=== PATIENT | male | born 1940 | race African-American/Black ===

== ENCOUNTER 2017-07-09 18:17 | Inpatient (IN) | payer MEDICARE, MEDICAID ==
[~2017-07-09] VITALS: Ht 182.9 cm; Wt 64.4 kg
[~2017-07-09 18:17] MED LIST: ALBU2.5V7 IH; HEPA0.5D3 SQ; OMEP20TA5 PO
[2017-07-09] MEDS ORDERED: NICO2GUM38 BC (18:44)
[2017-07-09] MEDS ORDERED: OLAN5TAB3 PO (18:44)
[2017-07-09] MEDS ORDERED: FOLI1TAB16 PO (18:44)
[2017-07-09] MEDS ORDERED: QUET25TA PO (18:44)
[2017-07-09] MEDS ORDERED: MULT1TAB73 PO (18:44)
[2017-07-09] MEDS ORDERED: NICO-625 TD (18:44)
--- NOTE | 2017-07-09 19:17 | NUR ---
handsoff report to given to kandi rodriguez
--- NOTE | 2017-07-09 20:04 | NUR ---
Pt. admitted to GPS, under care of Dr. Miller Belongs List completed
[2017-07-09 20:30] VITALS: BP 107/58
[2017-07-09] MEDS ORDERED: MAGNESIUM HYDROXIDE 30 ML LIQUID UDC PO PRN (20:45)
[2017-07-09] MEDS ORDERED: MAG HYDROX/AL HYDROX/SIMETH 30 ML LIQUID UDC PO PRN (20:45)
[2017-07-09] MEDS ORDERED: ACETAMINOPHEN 325 MG TABLET PO PRN (20:45)
[2017-07-09] MEDS ORDERED: CLONAZEPAM 0.5 MG TABLET PO SCH (20:45)
[2017-07-09 23:27] VITALS: BP 107/58
--- NOTE | 2017-07-10 04:56 | NUR ---
GPS:ADMISSION NOTES 77 Y/O MALE WHO INITIALLY LIVED AT [facility] AND WAS SENT TO [facility] WAS ADMITTED AT [facility] AFTER MEDICALLY CLEARED FROM ER.PATIENT ARRIVED BY GURJAHAIRA ACCOMPANIED BY ER STAFF. ON A 72HR HOLD FOR GRAVELY DISABLED PER HOLD HE WAS PREOCCUPIED WITH A LIGHT PIERCING HIS EYES , INCOHERENT FAILURE TO THRIVE AND UNABLE TO STATE WHEN HE LAST ATE SLEEP OR GET CLOTHES. UPON ASSESSMENT HE WAS OBSERVED TO BE UNKEMPT MUMBLING AND TALKING TO HIMSELF. WHEN ASKED WHAT BROUGHT HIM HERE HE SAID" I WAS BROUGHT ON A GURNEY.'HE ANSWERED SOME OF THE QUESTIONS AND WAS EVASIVE AND RELUCTANT WITH OTHERS STATING'" I WILL HAVE TO GET BACK TO YOU ON THAT "HIS MOOD WAS LABILE AND INCONGRUENT. HE HAS A HISTORY OF ASTHMA , ARTHRITIS SMOKER SCHIZO AFFECTIVE AND BIPOLAR DISORDER. HE SIGNED HALF THE ADMITTING PAPERS AND REFUSED TO SIGN THE REST. HE IS UNSTEADY ON HIS FEET WITH A HISTORY OF FALLS.HE DENIED PAIN, SI/HI.WILL CONTINUE TO MONITOR.
--- NOTE | 2017-07-10 07:02 | NUR ---
SLEPT FOR 2;45.PACING UP AND DOWN BUT GOES TO HIS ROOM AFTER REDIRECTION.WILL CONTINUE TO MONITOR
[2017-07-10 07:30] VITALS: BP 118/66
[2017-07-10] MEDS: MULTIVITAMINS,THERAPEUTIC TABLET PO SCH (08:58)
[2017-07-10] MEDS: FOLIC ACID 1 MG TABLET PO SCH (08:58)
[2017-07-10] MEDS: NICOTINE 14 MG/24HR PATCH TD SCH (08:58)
[2017-07-10] MEDS ORDERED: NICOTINE 14 MG/24HR PATCH TD SCH (09:00)
[2017-07-10] MEDS ORDERED: Medication Not On Formulary EA (Multivitamins (Multivitamin) 1 EACH) PO SCH (09:00)
--- NOTE | 2017-07-10 14:41 | NUR ---
Firearms Report: Bench Inspector completed and submitted [facility] Firearms Report on 07/10/17.
[2017-07-10 15:32] VITALS: BP 106/46
--- NOTE | 2017-07-10 17:00 | NUR ---
GPS: Nursing Notes: Thought Disorder: Patient is awake and responding to his name, pacing around the unit, wearing a trash paper bag like a hat, stated "I have an acute hearing...", internally preoccupied, mumbling to self, A/Ox2, disoriented to situation and time, episodes of talking incoherently, poor grooming, unkempt appearance, unable to formulate a viable plan for self care, believes that some baltazar of lights are piercing his eyes, denies any pain or discomfort at this time, continue with treatment plan.
[2017-07-10 20:00] VITALS: BP 121/46
[2017-07-10] MEDS ORDERED: OLANZAPINE ZYDIS 5 MG TAB.RAPDIS PO SCH (21:00)
--- NOTE | 2017-07-11 06:52 | NUR ---
PATIENT SLEPT WELL FOR 8;30 THROUGHOUT THE NIGHT. CALM AND COOPERATIVE WITH STAFF. WILL CONTINUE WITH MONITORING
[2017-07-11 07:30] VITALS: BP 154/63
[2017-07-11] MEDS: MULTIVITAMINS,THERAPEUTIC TABLET PO SCH (08:38)
[2017-07-11] MEDS: FOLIC ACID 1 MG TABLET PO SCH (08:39)
[2017-07-11] MEDS: NICOTINE 14 MG/24HR PATCH TD SCH (08:39)
--- NOTE | 2017-07-11 12:10 | NUR ---
Initial Discharge Instructions: Patient is currently homeless. Per chart, he was discharged to [facility] [[address], [place] [address]; [phone]] on 03/15/16. Placed call to the facility and spoke with Zahida in Medical Records who states the patient was discharged from that facility on 06/22/17. Patient was unable to form plan for discharge disposition at this time. SW will collaborate with pt and MD regarding appropriate discharge plan for this patient. SW will form a safe and proper discharge plan.
[2017-07-11 15:17] VITALS: BP 122/64
[2017-07-11 20:00] VITALS: BP 99/64
[2017-07-11] MEDS ORDERED: OLANZAPINE ZYDIS 5 MG TAB.RAPDIS PO SCH (21:00)
--- NOTE | 2017-07-11 22:00 | NUR ---
received to care, watching tv with peers, pleasant upon approach. compliant with medications and staff direction. as of 2199, he appears to be asleep. no distress noted. will continue to monitor closely.
--- NOTE | 2017-07-12 06:40 | NUR ---
Shift end report: Slept total of 5.5 hours. No complaint presented. No significant event reported all night. Continue care as planned.
[2017-07-12 07:30] VITALS: BP 107/69
--- NOTE | 2017-07-12 07:58 | NUR ---
received pt. awake sitting on bed. looks sad but cooperative at this time.
[2017-07-12] MEDS: FOLIC ACID 1 MG TABLET PO SCH (08:55)
[2017-07-12] MEDS: MULTIVITAMINS,THERAPEUTIC TABLET PO SCH (08:55)
[2017-07-12] MEDS: NICOTINE 14 MG/24HR PATCH TD SCH (08:55)
[2017-07-12 14:35] VITALS: BP 137/65
--- NOTE | 2017-07-12 15:24 | NUR ---
up to the dining room. fall precaution maintained. kept safe, seen at intervals. needs attended.
[2017-07-12 20:00] VITALS: BP 111/60
[2017-07-12] MEDS ORDERED: OLANZAPINE ZYDIS 5 MG TAB.RAPDIS PO SCH (21:00)
--- NOTE | 2017-07-12 22:00 | NUR ---
received to care, watching tv with peers, pleasant, upon approach. observed to talking to self, at times. compliant with medications and staff direction. as of 0, he remains awake, watching tv. no distress noted. will continue to monitor closely.
[2017-07-12] MEDS: TEMAZEPAM 7.5 MG CAPSULE PO PRN (23:08)
--- NOTE | 2017-07-12 23:08 | NUR ---
remains awake, in tv room. PRN restoril given for insomnia.
--- NOTE | 2017-07-12 23:40 | NUR ---
appears to be asleep. no distress noted.
[2017-07-13 08:00] VITALS: BP 114/54
[2017-07-13] MEDS: FOLIC ACID 1 MG TABLET PO SCH (09:10)
[2017-07-13] MEDS: MULTIVITAMINS,THERAPEUTIC TABLET PO SCH (09:10)
[2017-07-13] MEDS: NICOTINE 14 MG/24HR PATCH TD SCH (09:11)
[2017-07-13 16:18] VITALS: BP 151/80
--- NOTE | 2017-07-13 17:00 | NUR ---
Gps/Bell Person- Ambulatory, isolative, showered self ind.after set up, not interactive but follows simple directions . Safety reviewed emphasized, encouraged eating in the dinning room during meals.
[2017-07-13 20:00] VITALS: BP 127/89
[2017-07-13] MEDS ORDERED: OLANZAPINE ZYDIS 5 MG TAB.RAPDIS PO SCH (21:00)
--- NOTE | 2017-07-13 22:00 | NUR ---
received to care, lying in bed, with covers over his face. remains pleasant when engaged. compliant with medications and staff direction. as of 2199, he appears to be asleep. no distress noted. will continue to monitor closely.
--- NOTE | 2017-07-14 06:00 | NUR ---
slept 6.0 hours.
[2017-07-14 07:30] VITALS: BP 149/59
[2017-07-14] MEDS: NICOTINE 14 MG/24HR PATCH TD SCH (08:53)
[2017-07-14] MEDS: FOLIC ACID 1 MG TABLET PO SCH (08:53)
[2017-07-14] MEDS: MULTIVITAMINS,THERAPEUTIC TABLET PO SCH (08:53)
[2017-07-14 14:54] VITALS: BP 106/58
[2017-07-14] MEDS: CLONAZEPAM 0.5 MG TABLET PO PRN (18:41)
[2017-07-14 19:59] VITALS: BP 102/60
[2017-07-14] MEDS: OLANZAPINE ZYDIS 5 MG TAB.RAPDIS PO SCH (20:25)
[2017-07-14] MEDS: TEMAZEPAM 7.5 MG CAPSULE PO PRN (21:00)
--- NOTE | 2017-07-15 06:22 | NUR ---
Patient slept 5.5 hours in my shift. No behavioral issues. Med compliant. VSS. Room is kept clutter free. Bed in low and locked position. All meds given as ordered with no adverse effects. All needs met. Safety and comfort measures maintained t/o shift.
[2017-07-15] MEDS: CLONAZEPAM 0.5 MG TABLET PO PRN (09:04)
[2017-07-15] MEDS: FOLIC ACID 1 MG TABLET PO SCH (09:04)
[2017-07-15] MEDS: MULTIVITAMINS,THERAPEUTIC TABLET PO SCH (09:04)
[2017-07-15] MEDS: NICOTINE 14 MG/24HR PATCH TD SCH (09:05)
[2017-07-15 10:25] VITALS: BP 132/64
--- NOTE | 2017-07-15 16:00 | NUR ---
Gps/Physician Executive- Attended group therapy, needed min.prompting to take his routine meds. Responding to internal stimuli, noted talking to self.
[2017-07-15 16:48] VITALS: BP 125/66
[2017-07-15 20:30] VITALS: BP 116/61
[2017-07-15] MEDS: OLANZAPINE ZYDIS 5 MG TAB.RAPDIS PO SCH (21:03)
[2017-07-16 07:30] VITALS: BP 115/45
[2017-07-16] MEDS: CLONAZEPAM 0.5 MG TABLET PO PRN (08:33)
[2017-07-16] MEDS: FOLIC ACID 1 MG TABLET PO SCH (08:33)
[2017-07-16] MEDS: NICOTINE 14 MG/24HR PATCH TD SCH (08:37)
[2017-07-16] MEDS: MULTIVITAMINS,THERAPEUTIC TABLET PO SCH (08:37)
--- NOTE | 2017-07-16 14:56 | NUR ---
Gps/Heavy Line Technician- Remain sitting up in the tv room , watching TV, quiet at this time , requesting snacks , in and out participating in his group therapy, talks to self from time to time
[2017-07-16 15:42] VITALS: BP 119/56
--- NOTE | 2017-07-16 20:30 | NUR ---
RECEIVED PATIENT IN HIS ROOM IN BED. HE IS NOTED AWAKE A/O X 1. HE CONTINUE RESPONDING TO INTERNAL STIMULI. NOTED HYPERVERBAL, FLIGHT OF IDEAS, TANGENTIAL. HOWEVER, NO AGGRESSIVE BX NOTED AT THIS TIME. PT COMPLIANT WITH MEDICATION REGIMENT. SAFETY EMPHASIS. WILL CONTINUE TO MONITOR.
[2017-07-16] MEDS: OLANZAPINE ZYDIS 5 MG TAB.RAPDIS PO SCH (20:56)
[2017-07-16 22:26] VITALS: BP 107/49
[2017-07-17 07:30] VITALS: BP 131/64
[2017-07-17] MEDS: NICOTINE 14 MG/24HR PATCH TD SCH (08:36)
[2017-07-17] MEDS: FOLIC ACID 1 MG TABLET PO SCH (08:36)
[2017-07-17] MEDS: MULTIVITAMINS,THERAPEUTIC TABLET PO SCH (08:36)
[2017-07-17 15:42] VITALS: BP 105/46
[2017-07-17] MEDS: OLANZAPINE ZYDIS 5 MG TAB.RAPDIS PO SCH (20:07)
[2017-07-17 20:26] VITALS: BP 127/71
--- NOTE | 2017-07-18 06:00 | NUR ---
slept 8.0 hours.
[2017-07-18 07:30] VITALS: BP 121/57
--- NOTE | 2017-07-18 07:46 | NUR ---
Pt.walking in the room,cooperative , denies any pain, no s/s of distress or agitation noted.
[2017-07-18] MEDS: FOLIC ACID 1 MG TABLET PO SCH (08:20)
[2017-07-18] MEDS: MULTIVITAMINS,THERAPEUTIC TABLET PO SCH (08:20)
[2017-07-18] MEDS: NICOTINE 14 MG/24HR PATCH TD SCH (08:20)
[2017-07-18 15:31] VITALS: BP 129/69
--- NOTE | 2017-07-18 16:02 | NUR ---
Pt.watching TV ,communicating with others pt. shows increases ability to cope with caregiving.
--- NOTE | 2017-07-18 17:48 | NUR ---
Pt.eating dinner,good appetite,more cooperative,initiate topic .
--- NOTE | 2017-07-18 19:30 | NUR ---
Up in the TV room, watching TV. Very calm and approachable. Very proud to be look alike with Theresa Jesus Laden with the towel covered his head. No complaint presented.
[2017-07-18] MEDS: OLANZAPINE ZYDIS 5 MG TAB.RAPDIS PO SCH (20:19)
[2017-07-18 21:04] VITALS: BP 140/67
--- NOTE | 2017-07-19 06:48 | NUR ---
Slept well. Total of 7.5 hours sleep. No problem presented. All needs attended and met. Continue care as planned.
[2017-07-19 07:30] VITALS: BP 146/52
[2017-07-19] MEDS: MULTIVITAMINS,THERAPEUTIC TABLET PO SCH (09:19)
[2017-07-19] MEDS: FOLIC ACID 1 MG TABLET PO SCH (09:19)
[2017-07-19] MEDS: NICOTINE 14 MG/24HR PATCH TD SCH (09:19)
[2017-07-19] MEDS: CLONAZEPAM 0.5 MG TABLET PO PRN (09:19)
[2017-07-19 14:56] VITALS: BP 129/64
--- NOTE | 2017-07-19 17:55 | NUR ---
Gps/Superintendent Drilling And Production- Stayed in the activity room most of the time, watching TV, mumbles and noted responding to internal stimuli.
[2017-07-19 20:00] VITALS: BP 128/64
[2017-07-19] MEDS ORDERED: OLANZAPINE ZYDIS 5 MG TAB.RAPDIS PO SCH (21:00)
--- NOTE | 2017-07-20 06:00 | NUR ---
slept 8 hours. continues to sleep. no distress noted.
[2017-07-20 07:30] VITALS: BP 123/67
--- NOTE | 2017-07-20 08:10 | NUR ---
DC Note: Patient will be discharged to [facility] [[address], [place] [address]; ] via ambulance. Spoke with Dedra at the facility who states they are ready to accept the patient today. Patient is aware and agreeable with discharge plan. Patient has no family or friends to notify of discharge. Patient will follow-up at the facility with Dr. Dumont (Job Molder) and Dr. Ren (Psychiatrist). Patient was provided with a brief substance abuse intervention and referred to [facility] , [facility] , and [facility] . For smoking cessation, patient was referred to [employer] 800-LUNGUSA and [employer] [phone].
[2017-07-20] MEDS: NICOTINE 14 MG/24HR PATCH TD SCH (08:59)
[2017-07-20] MEDS: MULTIVITAMINS,THERAPEUTIC TABLET PO SCH (08:59)
[2017-07-20] MEDS: CLONAZEPAM 0.5 MG TABLET PO PRN (08:59)
[2017-07-20] MEDS: FOLIC ACID 1 MG TABLET PO SCH (08:59)
--- NOTE | 2017-07-20 11:30 | NUR ---
Gps/Derrick Worker Well Service-Called [facility] , report given to Gamaliel(Nurse) Patient was well informed of the dc.plan, all belongings given back to patient .No complaints noted. Ambulance picker tender time at 1200.
--- NOTE | 2017-07-20 12:00 | NUR ---
Gps/Designer- Discharged to [facility] via ambulance, all belongings was given back to patient, ,discharged in no complaints,no distress noted . Harrod, milk and pudding provided claimed hungry and unable to wait for his lunch.
== END 2017-07-20 12:30 | DRG 885 ==
LOC: ER 18:18 → GPS 20:00
PROVIDERS: ADMIT Psychiatry & Neurology Psychiatry; ATTEND Psychiatry & Neurology Psychiatry
DX: F20.0 Paranoid schizophrenia (principal); G93.40 Encephalopathy, unspecified; F03.90 Unspecified dementia, unspecified severity, without behavioral disturbance, psychotic disturbance, mood disturbance, and anxiety; F29 Unspecified psychosis not due to a substance or known physiological condition; D64.9 Anemia, unspecified; J44.9 Chronic obstructive pulmonary disease, unspecified; R73.03 Prediabetes; Z59.0 Homelessness; Z91.19 Patient's noncompliance with other medical treatment and regimen; Z91.81 History of falling; Z88.0 Allergy status to penicillin; R74.0 Nonspecific elevation of levels of transaminase and lactic acid dehydrogenase [LDH]; Z73.6 Limitation of activities due to disability; F31.9 Bipolar disorder, unspecified; R63.6 Underweight
CPT/HCPCS: 36415; 71045; 93005; A4663